=== PATIENT | male | born 1965 | race Caucasian/White ===

== ENCOUNTER 2018-03-23 08:30 | Emergency (ER) | payer BC, OTHER ==
[2018-03-23] MEDS ORDERED: Tetan/Diph/Pertus SYR(Tdap)* 0.5 ML SYR(BOOSTRIX) use SYR IM ONE (10:21)
[2018-03-23 10:27] VITALS: BP 176/88
--- NOTE | 2018-03-23 10:30 | UC ---
Hand/Wrist HPI - HPI Summary HPI Summary: monday was doing yard work. monday noted soreness to base of R index finger. area became red, hot and swollen. self tx with ice and nsaid's but continues to worsen. pt unable to completely bend or straighten his index finger. last tetanus is not know. admits to a scratch on the back of same hand but denies any traumatic injury. - History Of Current Complaint Chief Complaint: UCUpperExtremity Stated Complaint: RIGHT HAND COMPLAINT Time Seen by Provider: 03/23/18 10:13 Hx Obtained From: Patient Onset/Duration: Gradual Onset Pain Intensity: 8 Aggravating Factor(s): Movement Alleviating Factor(s): Nothing Associated Signs And Symptoms: Positive: Swelling, Redness, Other - UNABLE TO COMPLETELY BEND / STRAIGHTEN RIGHT INDEX FINGER - Allergies/Home Medications Allergies/Adverse Reactions: Allergies Allergy/AdvReac Type Severity Reaction Status Date / Time clavulanic acid AdvReac GI Upset, Verified 03/23/18 10:36 [From Augmentin] Diarrhea Home Medications: Home Medications Aspirin 650 mg PO DAILY PRN 03/23/18 [History Confirmed 03/23/18] Metoprolol Succinate 50 mg PO DAILY 03/23/18 [History Confirmed 03/23/18] Multivitamin [Multivitamins] 1 cap PO DAILY 03/23/18 [History Confirmed 03/23/18 ] Naproxen Sodium [Aleve] 220 mg PO TID PRN 03/23/18 [History Confirmed 03/23/18] Omeprazole CAP* [Prilosec CAP* 20 MG] 20 mg PO DAILY 03/23/18 [History Confirmed 03/23/18] PMH/Surg Hx/FS Hx/Imm Hx Cardiovascular History: Hypertension GI/ History: Gastroesophageal Reflux - Surgical History Surgical History: None - Family History Known Family History: Positive: Other - [place] - Social History Occupation: Unemployed Alcohol Use: Occasionally Substance Use Type: None Smoking Status (MU): Current Some Day Smoker Type: Cigarettes, Cigars Amount Used/How Often: occasional use - Immunization History Hx Tetanus, Diphtheria Vaccination: No - UNKNOWN Vaccination Up to Date: Yes Review of Systems Constitutional: Negative Skin: Negative Eyes: Negative ENT: Negative Respiratory: Negative Cardiovascular: Negative Gastrointestinal: Negative Genitourinary: Negative Motor: Negative Neurovascular: Negative Musculoskeletal: Other: - PAIN, R3ED, SWELLING R HAND Neurological: Negative Psychological: Negative Is Patient Immunocompromised?: No All Other Systems Reviewed And Are Negative: Yes Physical Exam Triage Information Reviewed: Yes Appearance: Well-Appearing Vital Signs: Initial Vital Signs Temp 98.5 F 03/23/18 08:44 Pulse 81 03/23/18 08:44 Resp 14 03/23/18 08:44 BP 173/87 03/23/18 08:44 Pulse Ox 100 03/23/18 08:44 Vital Signs Reviewed: Yes Eyes: Positive: Conjunctiva Clear ENT: Positive: Normal ENT inspection Neck: Positive: Supple, Nontender, No Lymphadenopathy Respiratory: Positive: Lungs clear, Normal breath sounds Cardiovascular: Positive: RRR, No Murmur Abdomen Description: Positive: Nontender, No Organomegaly, Soft Bowel Sounds: Positive: Present Musculoskeletal: Positive: Other: - R HAND: DORSAL ERYTHEMA, SWELLING AND SCRATCH BASE OF INDEX AND MIDDLE FINGERS. VOLAR SURFACE HAS ERYTHEMA, SWELLING, HOT AND TENDER TO BASE OF INDEX AND MIDDLE FINGERS INTO THE HAND IN THENAR EMINENCE AREAS. PT NOT ABLE TO COMPLETELY FLEX OR EXTEND INDEX FINGER. PASSIVE ROM TO INDEX LIMITED BY PAIN ON VOLAR SURFACE. FINGER TIOS HAVE FULL S/V/M FUNCTIONS. Neurological: Positive: Alert Psychological: Positive: Age Appropriate Behavior Skin Exam: Normal Hand/Wrist Course/Dx - Course Course Of Treatment: EXAM C/W CELLULITIS R HAND AND FLEXOR TENOSYNOVOTIS R INDEX FINGER. NO CONCERN FOR COMPARTMENT SYNDROM. REQUIRES ORTHPEDIC HAND SERVICES. PT AGREES TO GO DIRECTLY TO [facility] FROM HERE. REPORT GIVEN TO [facility] TRANSFER [place]. - Differential Dx/Diagnosis Provider Diagnoses: CELLULITIS R HAND. FLEXOR TENOSYNOVITIS R INDEX FINGER. Discharge - Sign-Out/Discharge Documenting (check all that apply): Patient Departure All imaging exams completed and their final reports reviewed: No Studies - Discharge Plan Condition: Stable Disposition: TRANS HIGHER LVL OF CARE FAC Referrals: Will Palacios MD [Primary Care Provider] - Additional Instructions: LEAVE HERE AND GO DIRECTLY TO [facility]. DO NOT EAT OR DRINK. DIAGNOSIS: CELLULITIS RIGHT HAND. FLEXOR TENOSYNOVITIS R INDEX FINGER TREATED WITH TDAP AND 1 GRAM ROCEPHINE IM AT THE [facility] - Billing Disposition and Condition Condition: STABLE Disposition: Trans Higher Lvl of Care Fac Addendum entered and electronically signed by Yumiko Parkinson PA 03/23/18 11:03 : Addendum Addendum: HX HTN, BP HERE MAY BE VISIT RELATED. WILL HAVE RECHECK AT F/U.
[2018-03-23] MEDS ORDERED: cefTRIAXone VIAL(*) 1,000 MG VIAL IM ONE (10:36)
[2018-03-23] MEDS ORDERED: Lidocaine 1% MPF* 2 ML VIAL INJ ONE (10:37)
[2018-03-23] MEDS ORDERED: Lidocaine 1% MPF* 2 ML VIAL ONE (10:39)
== END 2018-03-23 11:12 | disposition short-term general hospital (02) ==
LOC: UCCORT 08:30
DX: L03.113 Cellulitis of right upper limb (principal); M65.841 Other synovitis and tenosynovitis, right hand; I10 Essential (primary) hypertension; K21.9 Gastro-esophageal reflux disease without esophagitis; Z79.82 Long term (current) use of aspirin; Z88.1 Allergy status to other antibiotic agents; Z72.0 Tobacco use
CPT/HCPCS: 90471; 90715; 96372; 99212; G0463; J0696